=== PATIENT | female | born 2000 | race Caucasian/White ===

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

== ENCOUNTER 2023-03-03 18:34 | Outpatient (CLI) | payer OTHER, MEDICAID | END 2023-03-03 23:59 | disposition EMS.NT | LOC: EMS 18:34 | DX: S80.12XA Contusion of left lower leg, initial encounter (principal); V49.40XA Driver injured in collision with unspecified motor vehicles in traffic accident, initial encounter; Y92.413 State road as the place of occurrence of the external cause ==